=== PATIENT | female | born 1975 ===

== ENCOUNTER → 2021-05-18 13:28 | Outpatient (CLI) | payer SELFPAY | PROVIDERS: PCP Physician Assistant; Visit Provider Physician Assistant | DX: Z91.89 Other specified personal risk factors, not elsewhere classified (principal) | CPT/HCPCS: 87086 ==

== ENCOUNTER → 2023-08-18 10:38 | Outpatient (CLI) | payer BC, SELFPAY | PROVIDERS: PCP Physician Assistant; Visit Provider Family Medicine | DX: Z87.440 Personal history of urinary (tract) infections (principal); N12 Tubulo-interstitial nephritis, not specified as acute or chronic | CPT/HCPCS: 87086 ==

== ENCOUNTER → 2023-10-05 10:05 | Outpatient (CLI) | payer BC, SELFPAY | PROVIDERS: PCP Physician Assistant; Visit Provider Physician Assistant Medical | DX: R10.9 Unspecified abdominal pain (principal); R30.0 Dysuria; N39.0 Urinary tract infection, site not specified; Z87.440 Personal history of urinary (tract) infections | CPT/HCPCS: 87086 ==